=== PATIENT | male | born 1935 | race Asian ===

== ENCOUNTER 2021-07-04 08:12 | Inpatient (IN) | payer MEDICARE, MEDICAID ==
[~2021-07-04] VITALS: Ht 160 cm; Wt 37.5 kg
[2021-07-04 09:06] LABS: GLUCOMETER DEV NAME(LOC) ERT.5; GLUCOSE,POINT OF CARE 130 MG/DL (70-110)
[2021-07-04] MEDS ORDERED: SODIUM CHLORIDE 0.9% 2,100 ML IV ONE (09:15)
[2021-07-04] MEDS ORDERED: FE PR (09:35)
[2021-07-04] MEDS ORDERED: MELA5TAB40 PO (09:35)
[2021-07-04] MEDS ORDERED: ZINC220C14 PO (09:35)
[2021-07-04] MEDS ORDERED: SPIR50TA27 PO (09:35)
[2021-07-04] MEDS ORDERED: MOM30 PO (09:35)
[2021-07-04] MEDS ORDERED: ASCO500 PO (09:35)
[2021-07-04] MEDS ORDERED: CITA10TA99 PO (09:35)
[2021-07-04] MEDS ORDERED: MIRT-89 PO (09:35)
[2021-07-04] MEDS ORDERED: FOLI-130 PO (09:35)
[2021-07-04] MEDS ORDERED: MULT-248 PO (09:35)
[2021-07-04 09:36] LABS: COVID AG,FIA SOURCE NASOPHARYNGEAL
[2021-07-04] MEDS ORDERED: FERR-89 PO (09:42)
[2021-07-04] MEDS ORDERED: HYDR-4072 PO (09:42)
[2021-07-04] MEDS ORDERED: ACET-784 PO (09:42)
[2021-07-04 10:30] LABS: BASOPHILS % (AUTO) 0.1 % (0.0-2.0); EOSINOPHILS % (AUTO) 0.1 % (1.0-6.0); HEMOGLOBIN 12.1 g/dL (13.5-17.5); LYMPHOCYTES # (AUTO) 1.1 K/uL (1.0-4.8); LYMPHOCYTES % (AUTO) 12.7 % (22.0-44.0); MEAN CORPUSCULAR HEMOGLOBIN 26.7 pg (26.0-34.0); MEAN CORPUSCULAR HGB CONC 30.1 G/dL (31.0-37.0); MEAN CORPUSCULAR VOLUME 89 fL (80-100); MONOCYTES # (AUTO) 0.1 K/uL (0.1-1.0); MONOCYTES % (AUTO) 1.6 % (2.0-9.0); NEUTROPHILS # (AUTO) 7.3 K/uL (1.8-7.7); PLATELET COUNT (AUTO) 117 K/uL (150-450); RED BLOOD CELL COUNT(AUTO) 4.52 MIL/uL (4.50-5.90); RED CELL DISTRIBUTION WIDTH 18.9 % (11.5-14.5)
[2021-07-04 10:31] LABS: NEUTROPHILS % (AUTO) 85.5 % (40.0-70.0)
[2021-07-04 10:56] LABS: ALANINE AMINOTRANSFERASE 83 U/L (12-78); ALBUMIN 1.7 g/dL (3.4-5.0); ALKALINE PHOSPHATASE 130 U/L (46-116); ANION GAP 23 mmol/L (8-16); ASPARTATE AMINOTRANSFERASE 197 U/L (15-37); BILIRUBIN,TOTAL 0.7 mg/dL (0.1-1.0); CALCIUM, TOTAL 10.1 mg/dL (8.8-10.5); CARBON DIOXIDE 11 mmol/L (22-29); CHLORIDE 112 mmol/L (98-107); GLOMERULAR FILTR. RATE CALC 20 mL/min (>60); GLUCOSE,RANDOM 134 mg/dL (70-110); SODIUM SERUM 146 mmol/L (136-145); TOTAL PROTEIN, SERUM 7.2 g/dL (6.4-8.2)
[2021-07-04 10:59] LABS: POTASSIUM 6.6 mmol/L (3.5-5.1)
[2021-07-04 11:00] LABS: UREA NITROGEN, BLOOD 150 mg/dL (7-18)
[2021-07-04] MEDS ORDERED: SODIUM BICARBONATE [ADULT] 8.4% 50 MEQ/50 ML SYRINGE IVP ONE (11:00)
[2021-07-04] MEDS ORDERED: INSULIN REGULAR, HUMAN 100 UNITS/ML IVP ONE (11:00)
[2021-07-04] MEDS ORDERED: CALCIUM GLUCONATE 100 MG/ML 10 ML IVP ONE (11:00)
[2021-07-04] MEDS ORDERED: DEXTROSE 50%-WATER 25 GM/50 ML SYRINGE IVP ONE (11:00)
[2021-07-04 11:10] LABS: LACTIC ACID 12.5 mmol/L (0.4-2.0)
[2021-07-04] MEDS ORDERED: FAMOTIDINE 20 MG TABLET PO SCH (11:15)
[2021-07-04] MEDS ORDERED: SODIUM CHLORIDE 0.45% 1,000 ML IV SCH (11:15)
[2021-07-04] MEDS ORDERED: MORPHINE SULFATE 2 MG/ML SYRINGE IVP PRN ×2 (11:15→19:15)
[2021-07-04] MEDS ORDERED: ONDANSETRON HCL 4 MG/2 ML VIAL IVP PRN (11:15)
[2021-07-04] MEDS ORDERED: LORazepam 2 MG/ML VIAL IVP PRN (11:15)
[2021-07-04] MEDS ORDERED: ALBUTEROL SULFATE 2.5 MG/0.5 ML NEB SOLUTION NEB PRN (11:15)
[2021-07-04] MEDS ORDERED: MELATONIN 5 MG TABLET PO PRN (11:15)
[2021-07-04] MEDS ORDERED: MAGNESIUM HYDROXIDE SUSPENSION 30 ML UDCUP PO PRN (11:15)
[2021-07-04] MEDS ORDERED: DOCUSATE SODIUM 100 MG CAPSULE PO PRN (11:15)
[2021-07-04] MEDS ORDERED: ACETAMINOPHEN 325 MG TABLET PO PRN (11:15)
[2021-07-04] MEDS ORDERED: BISACODYL 10 MG RECTAL RECTAL SUPPOSITORY PR PRN (11:15)
[2021-07-04] MEDS ORDERED: IPRATROPIUM BROMIDE 0.5 MG/2.5 ML NEB SOLUTION NEB PRN (11:15)
[2021-07-04] MEDS ORDERED: 0.9% SODIUM CHLORIDE 10 ML SYRINGE IVP PRN (11:15)
[2021-07-04] MEDS ORDERED: SODIUM PHOS/SODIUM BIPHOS 133 ML ENEMA PR PRN (11:15)
[2021-07-04] MEDS ORDERED: HYDROCODONE/ACETAMINOPHEN 5-325 MG TABLET PO PRN (11:15)
[2021-07-04] MEDS ORDERED: FERROUS SULFATE 325 MG EC TABLET PO SCH (12:00)
[2021-07-04] MEDS ORDERED: FAMOTIDINE 10 MG/ML 2 ML VIAL IVP SCH (12:00)
[2021-07-04] MEDS ORDERED: SCOPOLAMINE HYDROBROMIDE 1 MG/72 HOUR PATCH TD PRN (12:15)
[2021-07-04 14:16] VITALS: BP 41/23
[2021-07-04] MEDS ORDERED: SODIUM CL IRRIG SOLN BOTTLE 250 ML IRRIG ONE (15:51)
[2021-07-04 20:13] VITALS: BP 49/31
[2021-07-04] MEDS ORDERED: MIRTAZAPINE 15 MG TABLET PO SCH (21:00)
[2021-07-05] MEDS ORDERED: CITALOPRAM HYDROBROMIDE 10 MG TABLET PO SCH (09:00)
[2021-07-05] MEDS ORDERED: ZINC SULFATE 220 MG CAPSULE PO SCH (09:00)
[2021-07-05] MEDS ORDERED: FOLIC ACID 1 MG TABLET PO SCH (09:00)
[2021-07-05] MEDS ORDERED: ASCORBIC ACID 500 MG TABLET PO SCH (09:00)
[2021-07-05] MEDS ORDERED: MULTIVITAMINS WITH MINERALS, THERAPEUTIC TABLET PO SCH (09:00)
== END 2021-07-05 08:58 | DRG 189 ==
LOC: EMS 08:13 → 6N 13:00
PROVIDERS: ADMIT Internal Medicine; ATTEND Internal Medicine
DX: J96.00 Acute respiratory failure, unspecified whether with hypoxia or hypercapnia (principal); R53.2 Functional quadriplegia; N17.9 Acute kidney failure, unspecified; E87.0 Hyperosmolality and hypernatremia; E87.2 Acidosis; I95.9 Hypotension, unspecified; Z66 Do not resuscitate; E87.5 Hyperkalemia; I10 Essential (primary) hypertension; I25.10 Atherosclerotic heart disease of native coronary artery without angina pectoris; E11.9 Type 2 diabetes mellitus without complications; Z51.5 Encounter for palliative care; E86.0 Dehydration; Z20.822 Contact with and (suspected) exposure to COVID-19; R68.0 Hypothermia, not associated with low environmental temperature
CPT/HCPCS: 51701; 71045; 80053; 82962; 83605; 85025; 87040; 87077; 87186; 87205; 93005; 99291; J0610; J1815; J2270; J3490; 36415-L1; 36415-TC